=== PATIENT | male | born 2000 | race Two or more races ===

== ENCOUNTER 2023-03-22 20:13 | Emergency (ER) | payer OTHER ==
[~2023-03-22] VITALS: Ht 185.4 cm; Wt 73.0 kg
[2023-03-22 21:42] VITALS: BP 121/83; TEMP 98.1; O2SAT 100
[2023-03-22] MEDS ORDERED: IBUPROFEN 400 MG TABLET PO ONE (22:00)
== END 2023-03-23 00:51 | disposition home or self-care (01) ==
LOC: ER 20:15
DX: M79.18 Myalgia, other site (principal); M54.6 Pain in thoracic spine